=== PATIENT | male | born 1980 ===

== ENCOUNTER 2016-08-27 16:11 | Emergency (ER) | payer MEDICAID, OTHER ==
[~2016-08-27] VITALS: Ht 172.7 cm; Wt 158.0 kg
[~2016-08-27 16:11] MED LIST: NOMED; PANT40SU PO
[2016-08-27 16:40] VITALS: BP 121/67; PULSE 85; RESP 16; O2SAT 99
--- NOTE | 2016-08-27 17:31 | ED.REPORT ---
HPI-General Illness Date of Service August 27, 2016 ED Provider: Flaquito Goins PA-C Cecil is a 35-year-old male with history of alcohol abuse brought in by EMS after being found belligerence in the streets of [facility]. Breathalyzer performed in the field revealed a blood alcohol level of 0.358. Patient is disheveled and smells of alcohol. He will not answer historical questions or provide a review of systems. His mother reports that this is a frequent occurrence for him. Nursing Notes Stated Complaint: INTOXICATED Chief Complaint: Substance Abuse Nursing Notes Reviewed: Yes Allergies: Coded Allergies: No Known Allergies (Verified Allergy, Unknown, 08/27/16) Scheduled Omeprazole (Omeprazole) 20 Mg Tablet.dr 20 MG PO BID Pantoprazole-Expunged Drug, Do Not Renew! (Protonix-Expunged Drug, Do Not Renew! ) 40 Mg/Blist Pack Suspdr.pkt 40 MG PO BID Miscellaneous Medications No Historical Medication (No Historical Medication) Ea General Time Seen by MD: 17:20 Chief Complaint Other (Alcohol Intoxication) Past Medical History Past Medical History Notes: None provided Review of Systems Unable to Obtain ROS Intoxicated Physical Exam General: Well developed, well nourished, no acute distress. Sleeping on the gurney, breathing easily. Head: Atraumatic, normocephalic. Respiratory: Regular rate and rhythm. Breath sounds present, clear to auscultation and equal bilaterally. No respiratory distress. No increased work of breathing. Cardiovascular: Regular rate and rhythm, without murmur, gallop or rub. No pedal edema. Skin: Warm and dry. Psychological: Response to verbal stimulation with slight nods of the head. Vital Signs Vital Signs Date Time Temp Pulse Resp B/P Pulse Ox O2 Delivery O2 Flow Rate FiO2 08/28/16 04:22 36.9 96 16 118/70 98 Room Air 08/28/16 03:12 72 18 97/63 100 Room Air 08/27/16 23:00 89 16 113/53 96 Room Air 08/27/16 20:00 86 18 112/71 99 Room Air 08/27/16 16:40 36.9 85 16 121/67 99 Room Air Initial VS: Vital signs normal Interpretation & Diagnostics Interpretation & Diagnostics: EtOH 430 at 1738 URINE DRUG SCREEN: Negative URINE DIPSTICK: Bedside Urine Specific [place] * 1.005 Bedside Urine pH * 7 Bedside Urine Leukocyte Esterase * Negative Bedside Urine Nitrite * Negative Bedside Urine Protein * Negative Bedside Urine Glucose * Normal Bedside Urine Ketones * Negative Bedside Urine Urobilinogen * Normal Bedside Urine Bilirubin * Negative Bedside Urine Occult Blood * Negative Urine to Lab * Yes Lab Results Interpretation Test 08/27/16 16:30 08/27/16 16:40 Hold Purple Top Tube Received (Received) Hold Blue Top Tube Received (Received) Hold Red Top Tube Received (Received) Hold [place] Top Tube Received (Received) Alcohols 430mg/dL (0-10) Hold Urine Received (Received) CT Head Interpretation IMPRESSION: No acute intracranial abnormalities. Dictated by: Marlon Lawson M.D. on 08/27/2016 at 21:52 Study: Head CT no contrast Interpretation / Wet Read by: Interpret - Radiologist Re-Eval/Medical Decision Med Decision/Clinical Course 35-year-old arrived grossly intoxicated and now wants to go home after metabolizing all night. He is still mildly intoxicated but much improved. He wants to quit it is able to quit "cold turkey" according to him. I have suggested an Ativan taper would be reasonable for him and he is willing to try that. He is discharged home via [facility] for follow-up with PCP. Declines admission for detox declines crisis placement. 35-year-old male found to be intoxicated and belligerent and [place] brought in by EMS. Patient provides no history or review of systems. Mother reports a history of alcohol abuse. On physical examination heart tones and lung sounds are normal and patient appears to be resting comfortably on the gurney. Smells of alcohol. He appears to be protecting his airway well. Afterwards he becomes agitated and wishes to leave the department however he is unable to walk or stand. The patient was placed in restraints and medicated with Haldol, Ativan, Benadryl. At this point the plan is to wait for the patient to metabolize alcohol in his system and reassess. Care transferred to Dr. Finch at shift change Time of Eval: 18:30 Re-Evaluation/Progress Note: Patient became agitated which leave the emergency Department, however he is unable to stand or walk at this time. Terry padron was called and the patient was placed in four point restraints. I discussed the case with Dr. Finch who ordered 5 of Haldol, 2 of Ativan and 25 of Benadryl which were administered. Time of Eval: 01:00 Patient Status: Condition improved Re-Evaluation/Progress Note: Patient rechecked by Dr. Finch. He is sleeping. Care will be transferred to Dr. Rivera at change of shift. Discharge & Departure Shift Change Sign-Out Patient Care Transferred: Yes (Dr. Finch) Discussed Complaint(s): Yes Laboratory Evaluation: Lab evaluation discussed Imaging Studies: Ordered, not yet done Response to Therapy: Improved To Dr Rivera at 0300, awating sobriety Primary Impression: Alcohol intoxication Complication of substance-induced condition: uncomplicated Qualified Code: F10.120 - Alcohol abuse with intoxication, uncomplicated Disposition: Home Discharge Condition All VS Reviewed: Yes Condition: Improved Referrals: Sofy Collier MD (PCP) EDSupervising Provider for APC: Juliocesar Finch MD [facility] Att[facility] Portions of this note were transcribed by Arline Ashley. I, Dr. Finch, personally performed the history, physical exam, and medical decision-making; I reviewed and confirmed the accuracy of the information in the transcribed note. Signed by: Timo Garcia, 08/28/2016, 01:30 copies to: Sofy Collier MD, Seth PA-C August 27, 2016 17:31 ARLINE ASHLEY August 28, 2016 01:27 Juliocesar Finch MD August 28, 2016 02:22 Javier Rivera MD August 28, 2016 06:38
[2016-08-27] MEDS ORDERED: Haloperidol 5 mg/mL Inj IM ONE (18:35)
[2016-08-27 20:00] VITALS: BP 112/71; PULSE 86; RESP 18; O2SAT 99
--- NOTE | 2016-08-27 21:56 | DRSVH ---
PROCEDURE: CT BRAIN WITHOUT CONTRAST ([id number]) INDICATIONS: 35-year-old male with altered mental status. TECHNIQUE: Noncontrast 4.5 mm thick angled axial sections acquired from the foramen magnum to the vertex, with c oronal reformats. COMPARISON: None. FINDINGS: Multiple images are degraded by patient motion. Image quality: Excellent. CSF spaces: Basal cisterns are patent. No extra-axial fluid collections. Ventricles are normal in size and shape. Brain: No midline shift. No intracranial masses or hemorrhage. [place]-white matter interface is norm al. Skull and face: Calvarium and visualized facial bones are intact, without suspicious lesions. Sinuses: Visualized sinuses and mastoids are clear. IMPRESSION: No acute intracranial abnormalities. Dictated by: Marlon Lawson M.D. on 08/27/2016 at 21:52 Approved by: Marlon Lawson M.D. on 08/27/2016 at 21:55
[2016-08-27 23:00] VITALS: BP 113/53; PULSE 89; RESP 16; O2SAT 96
[2016-08-28 03:12] VITALS: BP 97/63; PULSE 72; RESP 18; O2SAT 100
[2016-08-28] MEDS ORDERED: OMEP20TA86 PO (03:40)
[2016-08-28] MEDS ORDERED: Alum-Mag Hydrox-Simeth 30 mL Suspension PO PRN (03:45)
[2016-08-28] MEDS ORDERED: Pantoprazole 40 mg ER24 Tablet PO ONE (03:45)
[2016-08-28] MEDS ORDERED: _LORazepam 2 MG Tablet PO SCH (03:45)
[2016-08-28 04:22] VITALS: BP 118/70; PULSE 96; RESP 16; O2SAT 98
== END 2016-08-28 04:28 | disposition home or self-care (01) ==
LOC: EDBD 16:11 → SED 16:11
DX: F10.120 Alcohol abuse with intoxication, uncomplicated (principal); Z78.1 Physical restraint status
CPT/HCPCS: 70450; 81002; 82075; 96372; 99285; G0480; J1200; J1630; J2060